=== PATIENT | male | born 2000 | race African-American/Black ===

== ENCOUNTER 2022-12-09 00:48 | Emergency (ER) | payer OTHER ==
[2022-12-09 01:05] VITALS: TEMP 98; BMI 44.1
[2022-12-09] MEDS ORDERED: SODIUM CHLORIDE 1,000 ML IV STA (01:09)
[2022-12-09] MEDS ORDERED: DIPHTH,PERTUSS(ACELL),TET 0.5 ML DISP.SYRIN IM ONE (01:11)
[2022-12-09 01:32] LABS: BASO % 0.8 % (0-2.0); EOS % 1.6 % (0-4.5); HEMATOCRIT 44.2 % (35.4-49); HEMOGLOBIN 14.9 GM/dL (11.7-16.9); LYMPH % 46.8 % (8-40); MCH 26.8 pg (25.7-33.7); MCHC 33.7 g/dl (32.0-35.9); MEAN CELL VOLUME 79.5 fl (80-96); MEAN PLT VOLUME 8.7 fl (7.5-11.1); MONO % 5.9 % (3.8-10.2); NEUT % 44.9 % (42.8-82.8); PLATELET COUNT 241 10^3/uL (134-434); RBC 5.56 M/mm3 (4.00-5.60); RDW 14.7 % (11.9-15.9); WHITE BLOOD COUNT 11.6 K/mm3 (4.0-10.0)
[2022-12-09 01:52] LABS: CHLORIDE 108 mmol/L (98-107); SODIUM 134 mmol/L (136-145)
[2022-12-09 01:54] LABS: ALBUMIN 4.2 g/dl (3.4-5.0); BLOOD UREA NITROGEN 15.6 mg/dL (7-18); CALCIUM 9.2 mg/dL (8.5-10.1); CO2 22 mmol/L (21-32); GLUCOSE,RANDOM 109 mg/dL (74-106)
[2022-12-09 01:57] LABS: CREATININE 1.2 mg/dL (0.55-1.3); SGOT/AST 90 U/L (15-37)
[2022-12-09 01:59] LABS: BILIRUBIN,TOTAL 0.2 mg/dL (0.2-1)
[2022-12-09 02:00] LABS: ALK PHOS 54 U/L (45-117)
[2022-12-09 02:01] LABS: ANION GAP 5 MMOL/L (8-16); POTASSIUM > 10.0 mmol/L (3.5-5.1); SGPT/ALT 69 U/L (13-61)
[2022-12-09 02:49] VITALS: RESP 20
[2022-12-09 03:12] LABS: POTASSIUM 3.7 mmol/L (3.5-5.1)
[2022-12-09 03:14] LABS: BLOOD UREA NITROGEN 13.3 mg/dL (7-18); CALCIUM 8.6 mg/dL (8.5-10.1)
[2022-12-09 03:15] LABS: ALBUMIN 3.6 g/dl (3.4-5.0)
[2022-12-09 03:19] LABS: BILIRUBIN,TOTAL 0.2 mg/dL (0.2-1); TOT PROT 6.5 g/dl (6.4-8.2)
[2022-12-09] MEDS ORDERED: BACITRACIN ZINC 15 GM TUBE TOPICAL OINTMENT ONE (04:19)
[2022-12-09] MEDS ORDERED: BACITRACIN ZINC 15 GM TUBE TOPICAL OINTMENT TP ONE (04:22)
[2022-12-09 04:32] VITALS: BP 128/71; PULSE 100
== END 2022-12-09 05:12 | disposition home or self-care (01) ==
LOC: JER 00:48
PROC: 3E0337Z Introduction of Electrolytic and Water Balance Substance into Peripheral Vein, Percutaneous Approach (ICD-10-PCS; principal; 2022-12-09)
PROC: 3E0234Z Introduction of Serum, Toxoid and Vaccine into Muscle, Percutaneous Approach (ICD-10-PCS; 2022-12-09)
DX: S02.2XXA Fracture of nasal bones, initial encounter for closed fracture (principal); S00.03XA Contusion of scalp, initial encounter; S00.511A Abrasion of lip, initial encounter; S30.811A Abrasion of abdominal wall, initial encounter; S80.212A Abrasion, left knee, initial encounter; S50.811A Abrasion of right forearm, initial encounter; S60.511A Abrasion of right hand, initial encounter; S60.512A Abrasion of left hand, initial encounter; V00.831A Fall from motorized mobility scooter, initial encounter; W22.8XXA Striking against or struck by other objects, initial encounter; Y92.480 Sidewalk as the place of occurrence of the external cause; R94.31 Abnormal electrocardiogram [ECG] [EKG]
CPT/HCPCS: 36415; 70450-TC; 70486-TC; 71260-TC; 72125-TC; 74177-TC; 80053; 80307; 84484; 85025; 85730; 86900; 90715; 93005; 93010; 99285-25